=== PATIENT | female | born 1995 | race Caucasian/White ===

== ENCOUNTER 2018-08-27 20:07 | Emergency (ER) | payer SELFPAY ==
[2018-08-27 20:10] VITALS: BP 126/83; PULSE 97; RESP 17; TEMP 37.4; O2SAT 97
--- NOTE | 2018-08-27 20:24 | W.ED.GENAD ---
Discharge Plan Disposition Patient Disposition: HOME Condition: Improving Discharge Details Chief Complaint: RashLesion Clinical Impression: Urticaria Primary Care Provider: None,None ED Provider: Lokesh Herman Home Meds and New Rx's Prescriptions: New prednisone 20 mg tablet 40 mg PO DAILY 5 Days Qty: 10 RF: 0 ranitidine HCl 150 mg tablet 150 mg PO BID Qty: 30 RF: 0 Continue ibuprofen 600 MG tablet 600 mg PO Q6H PRN (Reason: Pain) Qty: 16 RF: 0 Discharge Instructions Instructions: Urticaria (ED) Additional Instructions: Return for worsening rash, development of difficulty breathing or sensation of throat swelling. Our care management team will work to get you a follow-up appointment to establish primary care. May use Benadryl 25-50 mg every 6 hours as needed for itching. Please take Zantac and prednisone as prescribed, next dose tomorrow Medical Decision Making 23-year-old female with diffuse dermatitis/urticarial rash over 2 weeks time without clear inciting agent. She does have a pre-standing history of eczema. Do feel she will benefit from systemic steroid burst as well as Zantac for 10 days time. She is without a primary care physician at this time we will ask care management to place her on a follow-up list to establish primary care. Discussed with her home management as well as return precautions . HPI General Mode of arrival: ambulatory. Date/Time Provider Initiated Documentation: 08/27/18 20:11. Limitations to Documentation: no limitations. Information obtained by: patient. History of Present Illness 23 year old F presents to the emergency department with the chief complaint of Rash, described as moderate, Quality is described as other (Itching), and is localized to the chest, back, abdomen, left, right and upper extremity. Patient started experiencing this day(s) and it has been constant. No relieving factors improve symptom(s), No exacerbating factors reported . HPI Narrative: 23-year-old female presents with diffuse urticarial rash over 2 weeks time. She is unclear of any inciting agents. She has not had any throat swelling or difficulty breathing. Related Data Home Medications Medication Instructions Recorded Confirmed ibuprofen 600 mg PO Q6H PRN #16 tablet 11/29/17 08/27/18 prednisone 40 mg PO DAILY 5 Days #10 tab 08/27/18 ranitidine HCl 150 mg PO BID #30 tab 08/27/18 Previous Rx's Medication Instructions Recorded ibuprofen 600 mg PO Q6H PRN #16 tablet 11/29/17 prednisone 40 mg PO DAILY 5 Days #10 tab 08/27/18 ranitidine HCl 150 mg PO BID #30 tab 08/27/18 Allergies Allergy/AdvReac Type Severity Reaction Status Date / Time mushroom AdvReac Unverified 08/27/18 20:16 General Stated Complaint: RashLesion PAULO: 4 Review of Systems Review of Systems 6 systems reviewed and otherwise negative PFS Social History Smoking/Tobacco Use Status: Current every day Exam Narrative Exam Narrative: GEN: awake, alert, oriented 3. Pleasant, well groomed, interactive. HEAD: Normocephalic, atraumatic ENT: Mucous membranes moist, oropharynx unremarkable, External ear exam unremarkable EYES: PERRL, EOMI NECK: Full ROM, no RANDALL, no menigismus CHEST/RESP: Nontender, clear to auscultation bilateral, no wheeze/rhonchi/rales CARDIOVASCULAR: RRR, no murmur, rub raulito. 2+ Rad pulse bilateral EXT: Full ROM, no parveen. SKIN: Warm, dry, well perfused. Diffuse erythematous, blanching raised lesions present on back, abdomen, extremities, no vesicles. Neuro: Grossly normal neurologic exam, conversant, interactive. Psych: Speech fluent, thoughts congruent, affect normal Course Vital Signs Temperature 37.4 C 08/27/18 20:10 Pulse 97 H 08/27/18 20:10 Respiratory Rate 17 08/27/18 20:10 Blood Pressure 126/83 08/27/18 20:10 Pulse Oximetry 97 08/27/18 20:10 Temperature 37.4 C 08/27/18 20:10 Temperature Source Temporal Artery Scan 08/27/18 20:10 Pulse 97 H 08/27/18 20:10 Respiratory Rate 17 08/27/18 20:10 Respiratory Effort Short of Breath 08/27/18 20:15 Blood Pressure 126/83 08/27/18 20:10 Blood Pressure Position Sitting 08/27/18 20:10 Pulse Oximetry 97 08/27/18 20:10 Oxygen Delivery Method Room Air 08/27/18 20:10 Oxygen Flow Rate 0 08/27/18 20:10 Pain Level 3 08/27/18 20:10
--- NOTE | 2018-08-27 20:29 | ED.GENADUL_ITS ---
Discharge Plan Disposition Patient Disposition: HOME Condition: Improving Discharge Details Chief Complaint: RashLesion Clinical Impression: Urticaria Primary Care Provider: None,None ED Provider: Lokesh Herman Home Meds and New Rx's Prescriptions: New prednisone 20 mg tablet 40 mg PO DAILY 5 Days Qty: 10 RF: 0 ranitidine HCl 150 mg tablet 150 mg PO BID Qty: 30 RF: 0 Continue ibuprofen 600 MG tablet 600 mg PO Q6H PRN (Reason: Pain) Qty: 16 RF: 0 Discharge Instructions Instructions: Urticaria (ED) Additional Instructions: Return for worsening rash, development of difficulty breathing or sensation of throat swelling. Our care management team will work to get you a follow-up appointment to establish primary care. May use Benadryl 25-50 mg every 6 hours as needed for itching. Please take Zantac and prednisone as prescribed, next dose tomorrow Medical Decision Making 23-year-old female with diffuse dermatitis/urticarial rash over 2 weeks time without clear inciting agent. She does have a pre-standing history of eczema. Do feel she will benefit from systemic steroid burst as well as Zantac for 10 days time. She is without a primary care physician at this time we will ask care management to place her on a follow-up list to establish primary care. Discussed with her home management as well as return precautions . HPI General Mode of arrival: ambulatory . Date/Time Provider Initiated Documentation: 08/27/18 20:11 . Limitations to Documentation: no limitations . Information obtained by: patient . History of Present Illness 23 year old F presents to the emergency department with the chief complaint of Rash, described as moderate, Quality is described as other (Itching), and is localized to the chest, back, abdomen, left, right and upper extremity. Patient started experiencing this day(s) and it has been constant. No relieving factors improve symptom(s), No exacerbating factors reported . HPI Narrative: 23-year-old female presents with diffuse urticarial rash over 2 weeks time. She is unclear of any inciting agents. She has not had any throat swelling or difficulty breathing. Related Data Home Medications Medication Instructions Recorded Confirmed ibuprofen 600 mg PO Q6H PRN #16 tablet 11/29/17 08/27/18 prednisone 40 mg PO DAILY 5 Days #10 tab 08/27/18 ranitidine HCl 150 mg PO BID #30 tab 08/27/18 Previous Rx's Medication Instructions Recorded ibuprofen 600 mg PO Q6H PRN #16 tablet 11/29/17 prednisone 40 mg PO DAILY 5 Days #10 tab 08/27/18 ranitidine HCl 150 mg PO BID #30 tab 08/27/18 Allergies Allergy/AdvReac Type Severity Reaction Status Date / Time mushroom AdvReac Unverified 08/27/18 20:16 General Stated Complaint: RashLesion PAULO: 4 Review of Systems Review of Systems 6 systems reviewed and otherwise negative PFS Social History Smoking/Tobacco Use Status: Current every day Exam Narrative Exam Narrative: GEN: awake, alert, oriented 3. Pleasant, well groomed, interactive. HEAD: Normocephalic, atraumatic ENT: Mucous membranes moist, oropharynx unremarkable, External ear exam unremarkable EYES: PERRL, EOMI NECK: Full ROM, no RANDALL, no menigismus CHEST/RESP: Nontender, clear to auscultation bilateral, no wheeze/rhonchi/rales CARDIOVASCULAR: RRR, no murmur, rub raulito. 2+ Rad pulse bilateral EXT: Full ROM, no parveen. SKIN: Warm, dry, well perfused. Diffuse erythematous, blanching raised lesions present on back, abdomen, extremities, no vesicles. Neuro: Grossly normal neurologic exam, conversant, interactive. Psych: Speech fluent, thoughts congruent, affect normal Course Vital Signs Temperature 37.4 C 08/27/18 20:10 Pulse 97 H 08/27/18 20:10 Respiratory Rate 17 08/27/18 20:10 Blood Pressure 126/83 08/27/18 20:10 Pulse Oximetry 97 08/27/18 20:10 Temperature 37.4 C 08/27/18 20:10 Temperature Source Temporal Artery Scan 08/27/18 20:10 Pulse 97 H 08/27/18 20:10 Respiratory Rate 17 08/27/18 20:10 Respiratory Effort Short of Breath 08/27/18 20:15 Blood Pressure 126/83 08/27/18 20:10 Blood Pressure Position Sitting 08/27/18 20:10 Pulse Oximetry 97 08/27/18 20:10 Oxygen Delivery Method Room Air 08/27/18 20:10 Oxygen Flow Rate 0 08/27/18 20:10 Pain Level 3 08/27/18 20:10
[2018-08-27] MEDS: predniSONE 20 MG TAB 60 MG PO (20:30)
[2018-08-27 20:31] VITALS: BP 126/83; PULSE 97; RESP 17; TEMP 37.4; O2SAT 97
== END 2018-08-27 20:52 | disposition home or self-care (01) ==
LOC: ER 21:20
PROVIDERS: Emergency Provider Emergency Medicine
DX: L50.9 Urticaria, unspecified (principal); L30.9 Dermatitis, unspecified
CPT/HCPCS: 99283; J7512

== ENCOUNTER 2018-09-17 09:27 | Emergency (ER) | payer SELFPAY ==
[2018-09-17 09:49] VITALS: BP 124/75; PULSE 83; RESP 18; TEMP 36.7; O2SAT 100
--- NOTE | 2018-09-17 09:52 | W.ED.GENAD ---
Discharge Plan Disposition Patient Disposition: HOME Condition: Fair Discharge Details Chief Complaint: DentalOral Clinical Impression: Dental infection Primary Care Provider: None,None ED Provider: Becka Naidu Home Meds and New Rx's Prescriptions: New penicillin V potassium 500 mg tablet 500 mg PO QID Qty: 28 RF: 0 Continued Oral Control RF: 0 Discharge Instructions Instructions: Dental Abscess (ED) Additional Instructions: Encourage hydration. Please continue with Tylenol and/or ibuprofen as needed for discomfort. Please take antibiotics as prescribed. Even if symptoms improve, please take entire course. You will need follow-up with dentist for definitive care or infection will recur. If you develop increased pain, fevers, swelling or other new/worsening symptoms please seek care urgently once again. Discharge Data Discharge Date/Time-TO BE ENTERED AT DEPARTURE: 09/17/18 10:54 Medical Decision Making Patient 23-year-old female with no pertinent medical history, presenting today with chief complaint of left upper dental pain. She reports the pain began approximate 3 days ago. Identifies a #16 tooth on the buccal aspect as the area of discomfort. States that she has had infection in this area previously, was last treated for this over a year ago. Has not as of yet seen a dentist. Does not have a dentist locally. Denies any chills. States that she has felt fevers from the pain spikes. Has been taking ibuprofen which has helped some of her discomfort. Denies any nausea or vomiting. She reports that she takes oral contraceptive, does not have regular menses. On exam, patient appears nontoxic and was resting comfortably. Vital signs are within normal limits. Patient is afebrile. Patient has erythema and some soft tissue swelling near the buccal side of the #16 tooth. No pain along the lingual side. No area of fluctuance to suggest a drainable abscess. No trismus, swelling in the posterior oropharynx. Good range of motion of the TMJ. No swelling of the tongue. Plan to treat with antibiotics. We will first obtain a UPT UPT negative. Patient will be treated for dental infection with Penicillin VK. Advised that she needs follow up with dentist for definitive care. Encouraged hydration and regular dental care. Tylenol and/or Ibuprofen as needed for discomfort. We discussed new/worsening symptoms and when to seek care urgently once again. All of her questions and concerns were addressed, she is in agreement with this plan. HPI General Mode of arrival: ambulatory. Date/Time Provider Initiated Documentation: 09/17/18 09:51. Limitations to Documentation: no limitations. Information obtained by: patient. History of Present Illness 23 year old F presents to the emergency department with the chief complaint of dental pain, described as moderate, Quality is described as aching, and is localized to the mouth. Patient reports no radiation. Patient started experiencing this day(s) and it has been constant. No relieving factors improve symptom(s), Eating worsens symptoms . Patient notes denies chest pain, cough, fever/chills, nausea/vomiting and rash. Patient did receive the following treatments prior to arrival, none Related Data Home Medications Medication Instructions Recorded Confirmed Oral Control 09/17/18 penicillin V potassium 500 mg PO QID #28 tab 09/17/18 Previous Rx's Medication Instructions Recorded penicillin V potassium 500 mg PO QID #28 tab 09/17/18 Allergies Allergy/AdvReac Type Severity Reaction Status Date / Time mushroom AdvReac Unverified 09/17/18 09:53 General PAULO: 4 Review of Systems Constitutional Reports as per HPI, Denies chills, Denies fatigue, Denies fever(s), Denies headache(s) and Denies poor appetite Eyes Denies change in vision and Denies irritation ENT Denies change in voice, Reports dental pain, Denies dysphagia, Denies headache(s), Denies lip swelling and Denies odynophagia Cardiovascular Reports as per HPI and Denies chest pain Respiratory Reports as per HPI and Denies cough Gastrointestinal Reports as per HPI, Denies dysphagia, Denies nausea, Denies odynophagia and Denies vomiting Integumentary/Breasts Reports as per HPI, Denies erythema, Denies rash and Denies skin pain Neurologic Denies headache(s) Endocrine Denies fatigue Allergic/Immunologic Denies lip swelling [facility] Social History Smoking/Tobacco Use Status: Current every day Exam Const General: cooperative, healthy appearing, comfortable, no acute distress, well developed and well groomed Nutritional Appearance: average body habitus and well nourished Orientation: alert and awake HENAL Head: normal to inspection, normocephalic and atraumatic Ears: hearing grossly normal bilaterally, external ears normal and TM's normal bilaterally General nose exam: external nose normal and nares normal Face and sinus: normal facial exam, sinuses nontender and face symmetric Mouth: abnormal oral mucosae (patient has tenderness and erythema over the buccal side #16), lip normal, tongue normal, oropharynx normal, moist mucous membranes, no muffled voice and no trismus Teeth and gingiva: abnormal gingiva (as above) Throat: posterior oropharynx normal, tonsils normal and uvula midline Eyes General: appearance normal, both eyes and all related structures Neck Neck: normal visual inspection, full ROM, no lymphadenopathy, supple and no anterior neck swelling Resp Effort & Inspection: normal respiratory effort, able to speak in complete sentences and no respiratory distress Auscultation: clear to auscultation bilaterally, no rales, no rhonchi and no wheezes Cardio Rate: regular rate Rhythm: regular rhythm Heart Sounds: S1 normal and S2 normal Skin General skin exam: no rashes or lesions noted Trauma: no lacerations or abrasions Neuro General: alert and awake Cognition: normal cognition Speech: speech normal Gait: normal gait Psych Appearance: grossly normal and well kempt Mental Status: mental status grossly normal Speech and Movement: speech and movement normal
--- NOTE | 2018-09-17 10:04 | ED.GENADUL_ITS ---
Discharge Plan Disposition Patient Disposition: HOME Condition: Fair Discharge Details Chief Complaint: DentalOral Clinical Impression: Dental infection Primary Care Provider: None,None ED Provider: Becka Naidu Home Meds and New Rx's Prescriptions: New penicillin V potassium 500 mg tablet 500 mg PO QID Qty: 28 RF: 0 Continued Oral Control RF: 0 Discharge Instructions Instructions: Dental Abscess (ED) Additional Instructions: Encourage hydration. Please continue with Tylenol and/or ibuprofen as needed for discomfort. Please take antibiotics as prescribed. Even if symptoms improve, please take entire course. You will need follow-up with dentist for definitive care or infection will recur. If you develop increased pain, fevers, swelling or other new/worsening symptoms please seek care urgently once again. Discharge Data Discharge Date/Time-TO BE ENTERED AT DEPARTURE: 09/17/18 10:54 Medical Decision Making Patient 23-year-old female with no pertinent medical history, presenting today with chief complaint of left upper dental pain. She reports the pain began approximate 3 days ago. Identifies a #16 tooth on the buccal aspect as the area of discomfort. States that she has had infection in this area previously, was last treated for this over a year ago. Has not as of yet seen a dentist. Does not have a dentist locally. Denies any chills. States that she has felt fevers from the pain spikes. Has been taking ibuprofen which has helped some of her discomfort. Denies any nausea or vomiting. She reports that she takes oral contraceptive, does not have regular menses. On exam, patient appears nontoxic and was resting comfortably. Vital signs are within normal limits. Patient is afebrile. Patient has erythema and some soft tissue swelling near the buccal side of the #16 tooth. No pain along the lingual side. No area of fluctuance to suggest a drainable abscess. No trismus, swelling in the posterior oropharynx. Good range of motion of the TMJ. No swelling of the tongue. Plan to treat with antibiotics. We will first obtain a UPT UPT negative. Patient will be treated for dental infection with Penicillin VK. Advised that she needs follow up with dentist for definitive care. Encouraged hydration and regular dental care. Tylenol and/or Ibuprofen as needed for discomfort. We discussed new/worsening symptoms and when to seek care urgently once again. All of her questions and concerns were addressed, she is in agreement with this plan. HPI General Mode of arrival: ambulatory . Date/Time Provider Initiated Documentation: 09/17/18 09:51 . Limitations to Documentation: no limitations . Information obtained by: patient . History of Present Illness 23 year old F presents to the emergency department with the chief complaint of dental pain, described as moderate, Quality is described as aching, and is localized to the mouth. Patient reports no radiation. Patient started experiencing this day(s) and it has been constant. No relieving factors improve symptom(s), Eating worsens symptoms . Patient notes denies chest pain, cough, fever/chills, nausea/vomiting and rash. Patient did receive the following treatments prior to arrival, none Related Data Home Medications Medication Instructions Recorded Confirmed Oral Control 09/17/18 penicillin V potassium 500 mg PO QID #28 tab 09/17/18 Previous Rx's Medication Instructions Recorded penicillin V potassium 500 mg PO QID #28 tab 09/17/18 Allergies Allergy/AdvReac Type Severity Reaction Status Date / Time mushroom AdvReac Unverified 09/17/18 09:53 General PAULO: 4 Review of Systems Constitutional Reports as per HPI, Denies chills, Denies fatigue, Denies fever(s), Denies headache(s) and Denies poor appetite Eyes Denies change in vision and Denies irritation ENT Denies change in voice, Reports dental pain, Denies dysphagia, Denies headache(s), Denies lip swelling and Denies odynophagia Cardiovascular Reports as per HPI and Denies chest pain Respiratory Reports as per HPI and Denies cough Gastrointestinal Reports as per HPI, Denies dysphagia, Denies nausea, Denies odynophagia and Denies vomiting Integumentary/Breasts Reports as per HPI, Denies erythema, Denies rash and Denies skin pain Neurologic Denies headache(s) Endocrine Denies fatigue Allergic/Immunologic Denies lip swelling [facility] Social History Smoking/Tobacco Use Status: Current every day Exam Const General: cooperative, healthy appearing, comfortable, no acute distress, well developed and well groomed Nutritional Appearance: average body habitus and well nourished Orientation: alert and awake HENMD Head: normal to inspection, normocephalic and atraumatic Ears: hearing grossly normal bilaterally, external ears normal and TM's normal bilaterally General nose exam: external nose normal and nares normal Face and sinus: normal facial exam, sinuses nontender and face symmetric Mouth: abnormal oral mucosae (patient has tenderness and erythema over the buccal side #16), lip normal, tongue normal, oropharynx normal, moist mucous membranes, no muffled voice and no trismus Teeth and gingiva: abnormal gingiva (as above) Throat: posterior oropharynx normal, tonsils normal and uvula midline Eyes General: appearance normal, both eyes and all related structures Neck Neck: normal visual inspection, full ROM, no lymphadenopathy, supple and no anterior neck swelling Resp Effort & Inspection: normal respiratory effort, able to speak in complete sentences and no respiratory distress Auscultation: clear to auscultation bilaterally, no rales, no rhonchi and no wheezes Cardio Rate: regular rate Rhythm: regular rhythm Heart Sounds: S1 normal and S2 normal Skin General skin exam: no rashes or lesions noted Trauma: no lacerations or abrasions Neuro General: alert and awake Cognition: normal cognition Speech: speech normal Gait: normal gait Psych Appearance: grossly normal and well kempt Mental Status: mental status grossly normal Speech and Movement: speech and movement normal
== END 2018-09-17 10:54 | disposition home or self-care (01) ==
PROVIDERS: Emergency Provider Physician Assistant
DX: K04.7 Periapical abscess without sinus (principal)
CPT/HCPCS: 99283

== ENCOUNTER 2020-11-14 03:00 | Outpatient (CLI) | payer MEDICAID, SELFPAY ==
[2020-11-14 15:46] LABS: Abs Immature Grans 0.04 10^3/uL (0.0-0.06); Absolute Basophil Count 0.05 10^3/uL (0.0-0.2); Absolute Eosinophil Count 0.14 10^3/uL (0.0-0.7); Absolute Monocyte Count 0.82 10^3/uL (0.1-0.8); Absolute Neutrophil Count 7.61 10^3/uL (1.2-6.7); Basophils % 0.4; Eosinophils % 1.1; HCT 42.3 % (36.0-46.0); HGB 14.5 g/dL (11.2-15.7); Immature Grans % 0.3; Lymphocytes % 31.1; MCH 30.7 pg (27.0-33.0); MCHC 34.3 % (32.0-36.0); MCV 89.4 fL (80-95); MPV 11.1 fL (8.0-11.0); Monocytes % 6.5; Neutrophils % 60.6; Nucleated RBC 0 %; Platelet Count 385 10^3/uL (130-400); RBC 4.73 10^6/uL (3.93-5.22); RDW 12.5 % (11.7-14.6); RDW-SD 41.4 fL; WBC 12.56 10^3/uL (4.4-10.8)
[2020-11-14 15:50] LABS: Absolute Lymphocyte Count 3.91 10^3/uL (1.2-3.4)
[2020-11-14 16:36] LABS: ALT 19 U/L (14-59); AST 9 U/L (15-37); Albumin 4.1 g/dL (3.4-5.0); Alkaline Phosphatase 84 U/L (46-116); Amylase 44 U/L (25-115); Bilirubin, Direct 0.09 mg/dL (0.00-0.20); Bilirubin, Total 0.4 mg/dL (0.2-1.0); Lipase 68 U/L (73-393); TSH (W/Ref FT4) 0.43 uIU/mL (0.36-3.74); Total Protein 7.6 g/dL (6.4-8.2)
[2020-11-15 10:04] LABS: Varicella IgG Antibody Negative (See Note)
[2020-11-15 10:08] LABS: Rubella IgG Ab (UVM) Positive (See Note)
[2020-11-15 10:21] LABS: HIV-1/2 Ag & Ab Screen Negative (Negative)
[2020-11-15 10:34] LABS: Hepatitis C Ab w Rflx HCV PCR Negative (Negative)
[2020-11-15 11:13] LABS: Hepatitis B Surface Ag Negative (Negative)
[2020-11-15 15:34] LABS: Syphilis Total Ab w/Reflex Nonreactive (Nonreactive)
== END 2020-11-14 03:01 | disposition home or self-care (01) ==
LOC: LBO 03:00
PROVIDERS: Visit Provider Advanced Practice Midwife
DX: Z34.91 Encounter for supervision of normal pregnancy, unspecified, first trimester (principal); Z11.4 Encounter for screening for human immunodeficiency virus [HIV]; Z11.59 Encounter for screening for other viral diseases; Z01.84 Encounter for antibody response examination
CPT/HCPCS: 36415; 80076; 83690; 86787; 86803; 86850; 86900; 86901; 87340; 87389; 82150; 84443; 85025; 86762; 86780

== ENCOUNTER 2020-11-14 15:57 | Outpatient (REF) | payer MEDICAID, SELFPAY ==
--- NOTE | 2020-11-14 14:30 | PAPFT_PTH ---
PATIENT: Beatriz Matute LOC: [facility] U#:[id number] AGE/SX: 25/F ROOM: RE11/14/[address]: Antionette Champion CNM : 1995 BED: DIS: 11/14/2020 SPEC #: [id number] RECD: 11/14/20 18:21 STATUS: JACKLYN REQ #: [id number] ELIUD: 11/14/20 14:[address]: Antionette Champion DEPT: [facility] Cytology RECD BY: Carlotta Foreman ENTERED: 11/14/20 18:21 SP TYPE: PAPFT OTHR DR: None Tissues: 1 - CX/ENDOCX FOR PAP SMEARS Procedures: PAP THIN PREP/UVM Screening Comments: [id number]
[2020-11-14 20:03] LABS: *AMPHETAMINES SCREEN URINE Negative (Negative); *BARBITURATES SCREEN URINE Negative (Negative); *BENZODIAZEPINES SCREEN URINE Negative (Negative); Cannabinoids THC POSITIVE (Negative); Cocaine Screen,Urine Negative (Negative); METHADONE URINE SCREEN Negative (Negative); OPIATES URINE SCREEN Negative (Negative)
[2020-11-14 20:13] LABS: Tricyclic Antidepressants Negative (Negative)
[2020-11-16 16:24] LABS: Chlamydia Result Negative (Negative); GC Result Negative (Negative)
[2020-11-21 09:07] LABS: Buprenorphine Negative ng/mL (Cutoff: 5.0); Norbuprenorphine Negative ng/mL (Cutoff: 2.5)
== END 2020-11-14 15:58 | disposition home or self-care (01) ==
LOC: LBN 15:57
PROVIDERS: Visit Provider Advanced Practice Midwife
DX: Z34.91 Encounter for supervision of normal pregnancy, unspecified, first trimester (principal); Z11.3 Encounter for screening for infections with a predominantly sexual mode of transmission; Z12.4 Encounter for screening for malignant neoplasm of cervix
CPT/HCPCS: 80307; 87077; 87491; 87591; 88142; 87086; 87186; 87480; 87510; 87660

== ENCOUNTER 2020-12-12 14:43 | Outpatient (REF) | payer MEDICAID, SELFPAY | END 2020-12-12 14:44 | disposition home or self-care (01) | LOC: LBN 14:43 | PROVIDERS: Visit Provider Advanced Practice Midwife | DX: Z34.91 Encounter for supervision of normal pregnancy, unspecified, first trimester (principal); R82.998 Other abnormal findings in urine | CPT/HCPCS: 87086 ==

== ENCOUNTER 2020-12-13 03:39 | Outpatient (CLI) | payer MEDICAID, SELFPAY ==
[2020-12-13 14:24] LABS: Kit/Specimen SENT
[2020-12-20 17:51] LABS: Result Summary NEGATIVE; Specimen WB Whole Blood
== END 2020-12-13 03:40 | disposition home or self-care (01) ==
LOC: LBO 03:39
PROVIDERS: Visit Provider Advanced Practice Midwife
DX: Z34.91 Encounter for supervision of normal pregnancy, unspecified, first trimester (principal); Z36.89 Encounter for other specified antenatal screening
CPT/HCPCS: 36415; 81220

== ENCOUNTER 2021-01-17 02:29 | Outpatient (CLI) | payer MEDICAID, SELFPAY ==
--- NOTE | 2021-01-17 08:45 | DI.US_ITS ---
EXAM: US OB 2-3 TRIMESTER CLINICAL HISTORY: ANATOMY, SURVEY,Z34.90. TECHNIQUE: Transabdominal obstetrical ultrasound was performed. COMPARISON: No exams were available for comparison FINDINGS: There is a single viable intrauterine gestation with cardiac activity identified-143 bpm. Amniotic fluid: There is a normal amount of amniotic fluid. Placental location: The placenta is anterior-fundal grade 1,with no evidence of placenta previa.There are multiple venous lakes evident within the placenta. ANATOMY: A 3 vessel umbilical cord is seen. A four-chamber cardiac view was obtained. Right and left ventricular outflow tracts were imaged.Image of the aortic arch was also obtained. There are no obvious abnormalities of the spinal column evident. There is no obvious abnormal ity of the anterior abdominal wall. stomach and urinary bladder are identified and there is no evidence of hydronephrosis. No abnormalities of the upper lip region are identified. Imaging of the brain revealed w hat appears to be a choroid plexus cyst on the right side . This was apparently difficult to assess because of position. Dating parameters place this at approximately 18 weeks and 4 days gestational age. BPD measures 19 weeks HC measures 18 weeks and 4 days AC measures 18 weeks and 1 day FL measures 18 weeks and 4 day Estimated weight is 239 gm-0 pound 8 ounces Fetus is at the 54th percentile on the Hadlock scale. IMPRESSION:: Single viable intrauterine gestation which is approximately 18 weeks and 4 days gestati onal age, implying an IRVIN of June 16, 2021. There are no obvious anomalies evident on today's study. However, there appears to be a probabl e cord plexus cyst in the right-side of the brain and this should undergo reimaging in a few weeks ti nj. The placenta is anterior-fundal and contains venous lakes. No evidence of placenta previa. There is a normal amount of amniotic fluid.
== END 2021-01-17 02:49 ==
PROVIDERS: Visit Provider Advanced Practice Midwife
DX: Z34.92 Encounter for supervision of normal pregnancy, unspecified, second trimester (principal); Z3A.18 18 weeks gestation of pregnancy
CPT/HCPCS: 76805

== ENCOUNTER 2021-03-25 03:08 | Outpatient (CLI) | payer MEDICAID, SELFPAY ==
[2021-03-25 09:17] LABS: HCT 38.1 % (36.0-46.0); HGB 12.9 g/dL (11.2-15.7); MCH 31.8 pg (27.0-33.0); MCHC 33.9 % (32.0-36.0); MCV 93.8 fL (80-95); MPV 10.5 fL (8.0-11.0); Platelet Count 396 10^3/uL (130-400); RBC 4.06 10^6/uL (3.93-5.22); RDW-SD 41.9 fL; WBC 18.09 10^3/uL (4.4-10.8)
[2021-03-25 09:27] LABS: Glucose,1 Hr (Glucola) 125 mg/dL (80-140)
== END 2021-03-25 03:09 | disposition home or self-care (01) ==
LOC: LBO 03:08
PROVIDERS: Visit Provider Advanced Practice Midwife
DX: Z34.93 Encounter for supervision of normal pregnancy, unspecified, third trimester (principal); Z3A.28 28 weeks gestation of pregnancy
CPT/HCPCS: 36415; 82950; 85027

== ENCOUNTER 2021-03-25 17:30 | Outpatient (REF) | payer MEDICAID, SELFPAY ==
[2021-03-25 18:08] LABS: *AMPHETAMINES SCREEN URINE Negative (Negative); *BARBITURATES SCREEN URINE Negative (Negative); *BENZODIAZEPINES SCREEN URINE Negative (Negative); Cannabinoids THC Positive (Negative); Cocaine Screen,Urine Negative (Negative); METHADONE URINE SCREEN Negative (Negative); OPIATES URINE SCREEN Negative (Negative)
[2021-03-25 18:16] LABS: Tricyclic Antidepressants Negative (Negative)
[2021-03-31 13:46] LABS: Buprenorphine Negative ng/mL (Cutoff: 5.0); Norbuprenorphine Negative ng/mL (Cutoff: 2.5)
== END 2021-03-25 17:31 | disposition home or self-care (01) ==
LOC: LBN 17:30
PROVIDERS: Visit Provider Advanced Practice Midwife
DX: O99.323 Drug use complicating pregnancy, third trimester (principal); Z3A.28 28 weeks gestation of pregnancy
CPT/HCPCS: 80307

== ENCOUNTER 2021-05-17 03:55 | Outpatient (CLI) | payer MEDICAID, SELFPAY ==
--- NOTE | 2021-05-17 07:30 | DI.US_ITS ---
Exam(s) US OB JOSH WEIGHT EXAM: US OB JOSH WEIGHT CLINICAL HISTORY: measuring less than dates,UTERINE SIZE DISCREP,[id number]. TECHNIQUE: Transabdominal obstetrical ultrasound performed. COMPARISON: US US OB 2-3 TRIMESTER from 01/17/2021 FINDINGS: Transabdominal obstetrical ultrasound performed. FINDINGS: Number of fetuses: One. position: Cephalic. Placental location: Anterior. No evidence of previa. Placental grade 2. Multiple venous lakes are present. BIOMETRIC DATA: BPD: 84 mm = 33 weeks 6 days HC: 307 mm = 34 weeks 2 days AC: 285 mm = 32 weeks 3 days FL: 68 mm = 35 weeks EFW: 2217 grms 8% Composite Age: 33 weeks 6 days EDC: 06/29/2021 Heart Rate: 124BPM Amniotic fluid index: 14.5 cm. Visually, amount of fluid is within normal limits. Umbilical artery evaluation: PI equals 0.87 which is within normal limits. RI equals 0.58 which is within normal limits. SD ratio is 115/49 which is less than the 50th percentile. IMPRESSION: 1. Single live intrauterine gestation as above. 2. Estimated weight is 2217gms. 3. Amniotic fluid index is 14.5 cm. Visually within normal limits. DATA REPOSITORY:
== END 2021-05-17 04:15 ==
PROVIDERS: Visit Provider Advanced Practice Midwife
DX: O26.843 Uterine size-date discrepancy, third trimester (principal); Z3A.33 33 weeks gestation of pregnancy
CPT/HCPCS: 76816

== ENCOUNTER 2021-05-17 11:14 | Outpatient (CLI) | payer MEDICAID, SELFPAY ==
[2021-05-17 11:29] VITALS: TEMP 37.1
[2021-05-17 12:07] VITALS: BP 137/92; PULSE 80
[2021-05-17 12:08] VITALS: BP 124/72; PULSE 77; TEMP 37.1
[2021-05-17 12:18] VITALS: BP 124/72; PULSE 77
--- NOTE | 2021-05-17 12:30 | W.OBNST ---
Date of service: 05/17/21 Time of Service: 11:45 NST Evaluation Reason for NST Reasons for Nonstress Test: OTHER, SEE COMMENT Reason for NST Other: SGA Gestational Age Gestational Age in Weeks and Days: 35 Weeks and 3Days Test and Monitor Explained Test/Monitor Explained: Test Explained, Monitor Explained and Patient Verbalized Understanding Vital Signs Blood Pressure: 124/72 Pulse: 77 Temperature: 98.8 F NST Information Date on Monitor: 05/17/21 Time on Monitor: 11:30 Date off Monitor: 05/17/21 Time off Monitor: 12:10 Total Time on Monitor: 40 NST Interventions: None NST Evaluation Patient States Movement: Present FHR Baseline: 125 Variability: Moderate 6-25 bpm Accelerations: 15x15 Decelerations: None NST Results: Reactive Note NST Note Note: NST being performed due to 8% growth on US today with normal doppler per verbal report by US department. Will do twice weekly NST and weekly JOSH/doppler per consult with Dr. Nunn. NST today is reactive and reassuring. Trigonometry Tutor has reviewed importance of kick count / movement awareness. NST Reviewed and Verified by: Rhea Pedraza
[2021-05-17 12:32] VITALS: BP 124/72; PULSE 77; TEMP 37.1
== END 2021-05-17 12:23 | disposition home or self-care (01) ==
LOC: BCD 11:17 → OBS 11:26
PROVIDERS: Visit Provider Advanced Practice Midwife
DX: O36.5930 Maternal care for other known or suspected poor fetal growth, third trimester, not applicable or unspecified (principal); Z3A.35 35 weeks gestation of pregnancy
CPT/HCPCS: 59025

== ENCOUNTER 2021-05-22 09:27 | Outpatient (CLI) | payer MEDICAID, SELFPAY ==
[2021-05-22 13:33] VITALS: BP 112/75; PULSE 83; TEMP 37.2
[2021-05-22 14:02] VITALS: BP 112/75; PULSE 83
--- NOTE | 2021-05-22 14:28 | W.OBNST ---
Date of service: 05/22/21 Time of Service: 14:28 NST Evaluation Reason for NST Reasons for Nonstress Test: OTHER, SEE COMMENT Reason for NST Other: size less than dates Gestational Age Gestational Age in Weeks and Days: 36 Weeks and 1Days Test and Monitor Explained Test/Monitor Explained: Test Explained, Monitor Explained and Patient Verbalized Understanding Vital Signs Blood Pressure: 112/75 Pulse: 83 Temperature: 99.0 F NST Information Date on Monitor: 05/22/21 Time on Monitor: 13:39 Date off Monitor: 05/22/21 Time off Monitor: 14:09 Total Time on Monitor: 30 NST Interventions: PO Hydration NST Evaluation Patient States Movement: Present FHR Baseline: 135 Variability: Moderate 6-25 bpm Accelerations: 15x15 Decelerations: None NST Results: Reactive Note NST Note Note: Discussed concerns related to growth restriction. Due to kidney malformation, I recommended MFM consultation regarding the baby's growth and indications for delivery. NST Reviewed and Verified by: Rhea Claire
[2021-05-22 14:29] VITALS: BP 112/75; PULSE 83; TEMP 37.2
[2021-05-22 22:20] LABS: *AMPHETAMINES SCREEN URINE Negative (Negative); *BARBITURATES SCREEN URINE Negative (Negative); *BENZODIAZEPINES SCREEN URINE Negative (Negative); Cannabinoids THC Positive (Negative); Cocaine Screen,Urine Negative (Negative); METHADONE URINE SCREEN Negative (Negative); OPIATES URINE SCREEN Negative (Negative)
[2021-05-22 22:22] LABS: Tricyclic Antidepressants Negative (Negative)
== END 2021-05-22 14:22 | disposition home or self-care (01) ==
LOC: BCD 09:29 → OBS 13:15
PROVIDERS: Visit Provider Advanced Practice Midwife
DX: O26.843 Uterine size-date discrepancy, third trimester (principal); Z3A.36 36 weeks gestation of pregnancy
CPT/HCPCS: 59025; 80307; 87081

== ENCOUNTER 2021-05-24 03:51 | Outpatient (CLI) | payer MEDICAID, SELFPAY ==
--- NOTE | 2021-05-24 09:00 | DI.US_ITS ---
Exam(s) US OB JOSH UMBILICAL ARTERY EXAM: US OB JOSH UMBILICAL ARTERY CLINICAL HISTORY: GROWTH RESTRICTION,[id number]. TECHNIQUE: Transabdominal obstetrical ultrasound performed. COMPARISON: US US OB JOSH WEIGHT from 05/17/2021 FINDINGS: Transabdominal obstetrical ultrasound performed. FINDINGS: Number of fetuses: One. position: Cephalic. Placental location: Anterior and fundal. There is a grade 2 placenta. No evidence of previa. BIOMETRIC DATA: BPD: 87 mm = 35 weeks 2 days HC: 321 mm = 36 weeks 2 days AC: 296 mm = 33 weeks 4 days FL: 64 mm = 32 weeks 6 days EFW: 2286 grms 5% Composite Age: 34 weeks 4 days EDC: 07/01/2021 Heart Rate: 143BPM Amniotic fluid index: 17 cm. Visually, amount of fluid is within normal limits. Umbilical artery evaluation: PI equals 1.07 which is within normal limits RI equals 0.63 which is within normal limits. S/D is equal to 2.72 which is within normal limits IMPRESSION: 1. Single live intrauterine gestation as above. 2. Estimated weight is 2286gms. This is the 5th percentile. 3. Amniotic fluid index is 17 cm. Visually within normal limits. 4. Umbilical artery values are within normal limits. DATA REPOSITORY:
== END 2021-05-24 04:11 ==
PROVIDERS: Visit Provider Advanced Practice Midwife
DX: O36.5930 Maternal care for other known or suspected poor fetal growth, third trimester, not applicable or unspecified (principal); Z3A.34 34 weeks gestation of pregnancy
CPT/HCPCS: 76816; 76820

== ENCOUNTER 2021-05-24 07:09 | Outpatient (CLI) | payer MEDICAID, SELFPAY ==
[2021-05-24 13:28] VITALS: BP 125/78; PULSE 85; TEMP 36.5
[2021-05-24 13:49] VITALS: BP 125/78; PULSE 85
--- NOTE | 2021-05-24 14:13 | PDOC.NST_ITS ---
Date of service: 05/24/21 Time of Service: 14:13 NST Evaluation Reason for NST Reasons for Nonstress Test: OTHER, SEE COMMENT Reason for NST Other: SGA Gestational Age Gestational Age in Weeks and Days: 36 Weeks and 3Days Test and Monitor Explained Test/Monitor Explained: Test Explained, Monitor Explained and Patient Verbalized Understanding Vital Signs Blood Pressure: 125/78 Pulse: 85 Temperature: 97.7 F NST Information Date on Monitor: 05/24/21 Time on Monitor: 13:29 Date off Monitor: 05/24/21 Time off Monitor: 13:58 Total Time on Monitor: 29 NST Interventions: PO Hydration NST Evaluation Patient States Movement: Present FHR Baseline: 135 Variability: Moderate 6-25 bpm Accelerations: 15x15 Decelerations: None NST Results: Reactive Note NST Note Note: US today with doppler studies. US and consultation has been scheduled at [facility] for Thu. NST Reviewed and Verified by: Rhea Claire
[2021-05-24 14:14] VITALS: BP 125/78; PULSE 85; TEMP 36.5
== END 2021-05-24 13:58 | disposition home or self-care (01) ==
LOC: BCD 07:13 → OBS 13:16
PROVIDERS: Visit Provider Advanced Practice Midwife
DX: O26.843 Uterine size-date discrepancy, third trimester (principal); Z3A.36 36 weeks gestation of pregnancy
CPT/HCPCS: 59025

== ENCOUNTER 2021-05-28 07:07 | Outpatient (CLI) | payer MEDICAID, SELFPAY ==
[2021-05-28 13:43] VITALS: BP 128/75; PULSE 80; TEMP 36.9
[2021-05-28 13:45] VITALS: BP 128/75; PULSE 80
--- NOTE | 2021-05-28 17:15 | PDOC.NST_ITS ---
Date of service: 05/28/21 Time of Service: 17:16 NST Evaluation Reason for NST Reasons for Nonstress Test: OTHER, SEE COMMENT Reason for NST Other: SGA Gestational Age Gestational Age in Weeks and Days: 37 Weeks and 0Days Test and Monitor Explained Test/Monitor Explained: Test Explained, Monitor Explained and Patient Verbalized Understanding Vital Signs Blood Pressure: 128/75 Pulse: 80 Temperature: 98.4 F NST Information Date on Monitor: 05/28/21 Time on Monitor: 13:43 Date off Monitor: 05/28/21 Time off Monitor: 14:13 Total Time on Monitor: 30 NST Interventions: PO Hydration NST Evaluation Patient States Movement: Present FHR Baseline: 130 Variability: Moderate 6-25 bpm Accelerations: 15x15 Decelerations: None NST Results: Reactive Note NST Note Note: US at 05/24 showed baby in the 5 %ile and she is having testing 2 x weekly. Beatriz had US [place] [facility] [place]. Cordero which showed the baby in the 13%ile with normal JOSH and AC 3%ile. Dr Cordero recommends induction of labor at 38-39 weeks and that has been scheduled for 05/04 NST Reviewed and Verified by: Rhea Claire
[2021-05-28 17:18] VITALS: BP 128/75; PULSE 80; TEMP 36.9
== END 2021-05-28 14:15 | disposition home or self-care (01) ==
LOC: BCD 07:09 → OBS 13:37
PROVIDERS: Visit Provider Advanced Practice Midwife
DX: O26.843 Uterine size-date discrepancy, third trimester (principal); Z3A.37 37 weeks gestation of pregnancy
CPT/HCPCS: 59025

== ENCOUNTER 2021-05-31 03:37 | Outpatient (CLI) | payer MEDICAID, SELFPAY ==
--- NOTE | 2021-05-31 08:00 | DI.US_ITS ---
Exam(s) US OB JOSH UMBILICAL ARTERY EXAM: US OB JOSH UMBILICAL ARTERY CLINICAL HISTORY: AFFECTED BY GROWTH RESTRICTION, [id number] TECHNIQUE: Ultrasound performed using standard protocol. COMPARISON: US US OB JOSH UMBILICAL ARTERY from 05/24/2021 FINDINGS: Ob ultrasound was performed utilizing 3rd trimester protocol. Placenta is fundal and anterior with no placenta previa. There is visually a normal quantity of amni otic fluid and the JOSH is 14. These is in cephalic presentation and heart rate is 144 BPM. biometry is consistent with gestational age of 35 weeks 1 day and EDC of July 04. The estimated weight is 2493 grams which is at the 6th percentile for predicted gestational age . Umbilical artery Doppler evaluation showed normal systolic-diastolic ratio, resistive index, and puls atility index for the patient's gestational age. IMPRESSION: DATA REPOSITORY:
== END 2021-05-31 03:57 ==
PROVIDERS: Visit Provider Advanced Practice Midwife
DX: Z3A.35 35 weeks gestation of pregnancy; O36.5930 Maternal care for other known or suspected poor fetal growth, third trimester, not applicable or unspecified
CPT/HCPCS: 76816; 76820

== ENCOUNTER 2021-05-31 13:16 | Outpatient (CLI) | payer MEDICAID, SELFPAY ==
[2021-05-31 13:21] VITALS: BP 113/69; PULSE 81; TEMP 36.9
--- NOTE | 2021-05-31 15:50 | W.OBNST ---
Date of service: 05/31/21 Time of Service: 15:50 NST Evaluation Reason for NST Reasons for Nonstress Test: OTHER, SEE COMMENT Reason for NST Other: SGA Gestational Age Gestational Age in Weeks and Days: 37 Weeks and 3Days Test and Monitor Explained Test/Monitor Explained: Test Explained, Monitor Explained and Patient Verbalized Understanding Vital Signs Blood Pressure: 113/69 Pulse: 81 Temperature: 98.4 F NST Information Date on Monitor: 05/31/21 Time on Monitor: 13:05 Date off Monitor: 05/31/21 Time off Monitor: 13:36 Total Time on Monitor: 31 NST Interventions: PO Hydration NST Evaluation Patient States Movement: Present FHR Baseline: 130 Variability: Moderate 6-25 bpm Accelerations: 15x15 Decelerations: None NST Results: Reactive Note JOSH Results of JOSH: 14 , Presentation Presentation Results: cephalic and Other (Growth today in the 6th percentile) NST Note Note: Scheduled for IOL for IUGR on 06/04 NST Reviewed and Verified by: Sabrina Champion
[2021-05-31 15:51] VITALS: BP 113/69; PULSE 81; TEMP 36.9
== END 2021-05-31 13:38 | disposition home or self-care (01) ==
LOC: BCD 13:17 → OBS 13:20
PROVIDERS: Visit Provider Advanced Practice Midwife
DX: O26.843 Uterine size-date discrepancy, third trimester (principal); Z3A.37 37 weeks gestation of pregnancy
CPT/HCPCS: 59025

== ENCOUNTER 2021-06-04 07:43 | Inpatient (IN) | payer MEDICAID, SELFPAY ==
[2021-06-04] VITALS (10 sets, daily range): BP systolic 117–134; BP diastolic 58–86; PULSE 70–90; RESP 14–18; TEMP 36.7–37.3; O2SAT 100
[2021-06-04 08:57] LABS: Source Nasal/Nares
[2021-06-04 09:02] LABS: HCT 36.4 % (36.0-46.0); HGB 12.1 g/dL (11.2-15.7); MCH 31.3 pg (27.0-33.0); MCHC 33.2 % (32.0-36.0); MCV 94.1 fL (80-95); MPV 10.5 fL (8.0-11.0); Platelet Count 438 10^3/uL (130-400); RBC 3.87 10^6/uL (3.93-5.22); RDW 12.6 % (11.7-14.6); RDW-SD 43.3 fL; WBC 19.16 10^3/uL (4.4-10.8)
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
[2021-06-04] MEDS: miSOPROStol 25 MCG TAB 50 MCG PO ×3 (09:29→18:49)
[2021-06-04 09:55] LABS: COVID-19 PCR Negative (Negative)
--- NOTE | 2021-06-04 17:37 | NUR.NOTE ---
cnm would like to wait for next dose of cytotec. Will wait 1 hour and put pt back on monitor per cnm verbal orderNursing Note:
[2021-06-04] MEDS: miSOPROStol 25 MCG TAB VG (18:50)
--- NOTE | 2021-06-04 18:55 | W.PM.OBNL1 ---
Date of service: 06/04/21 Time of Service: 18:55 Informed Consent Informed Consent: Induction of Labor and Risk,Benefits,Alternatives Discussed Pelvic Exam Dilation: 1 Effacement (%): 50 station: -4 Cervix Position: posterior Consistency: medium Vaginal Exam Presentation: Cephalic Contractions Monitor Mode: External Contraction Frequency(min): irreg q 3-5 Contraction Duration(sec): 30-40 Intensity: Mild Fetus A Monitor: External (US) Heart Rate Baseline: 125 Variability: Moderate (6-25 BPM) Categories: Category I Accelerations: 15 X 15 Decelerations: None Amniotic Membrane Status: Intact Assessment and Plan Assessment and plan (1) Encounter for induction of labor: Status: Acute Assessment and plan: A: primipara, IOL via cervical ripening category 1 tracing, 30-40 second contractions oral miso 50 mcg given x2 cvx 1/50% posterior, vtx -4, intact membranes P: Miso 25 mcg placed vaginally @ 1850 Reassess for further prostaglandin dosing in 4 hrs Pt declines medication for sleep this evening Objective Abnormal lab results 06/04/21 Range/Units 08:45 WBC 19.16 H (4.4-10.8) 10^3/uL RBC 3.87 L (3.93-5.22) 10^6/uL Plt Count 438 H (130-400) 10^3/uL Temp Pulse Resp BP Pulse Ox 98.2 F 84 16 134/86 100 06/04/21 18:31 06/04/21 18:32 06/04/21 18:31 06/04/21 18:32 06/04/21 17:18 Laboratory Results WBC 19.16 10^3/uL (4.4-10.8) H 06/04/21 08:45 RBC 3.87 10^6/uL (3.93-5.22) L 06/04/21 08:45 Hgb 12.1 g/dL (11.2-15.7) 06/04/21 08:45 Hct 36.4 % (36.0-46.0) 06/04/21 08:45 MCV 94.1 fL (80-95) 06/04/21 08:45 MCH 31.3 pg (27.0-33.0) 06/04/21 08:45 MCHC 33.2 % (32.0-36.0) 06/04/21 08:45 RDW 12.6 % (11.7-14.6) 06/04/21 08:45 Plt Count 438 10^3/uL (130-400) H 06/04/21 08:45 MPV 10.5 fL (8.0-11.0) 06/04/21 08:45 COVID-19 Source Nasal/Nares 06/04/21 08:30 SARS-CoV-2 (PCR) Negative (Negative) 06/04/21 08:30 Patient ABO/Rh O Positive 06/04/21 08:45 Antibody Screen NEGATIVE 06/04/21 08:45 Vital Signs Reviewed: Yes Subjective Interval history since last seen: irregular and short contractions, abd gets tight and there is pressure in the low back but not painful, maybe 2/10 pain level FOB and pt's mother (vaccinated) present for support Results Abnormal Lab Findings: Procedure Procedures: Cervical Ripening Cervical Ripening: Misoprostol
--- NOTE | 2021-06-04 19:37 | NUR.NOTE ---
500 cc bolus started at 1934 per cnm verbal order due to tachysystoleNursing Note:
[2021-06-04] MEDS: hydrOXYzine PAMOATE 25 MG CAP 75 MG PO (21:53)
[2021-06-05] VITALS (44 sets, daily range): BP systolic 107–127; BP diastolic 56–76; PULSE 62–214; RESP 16; TEMP 36.3–37.1; O2SAT 82–100; BMI 27.6
--- NOTE | 2021-06-05 00:42 | W.PM.OBNL1 ---
Date of service: 06/05/21 Time of Service: 00:42 Pelvic Exam Dilation: 1 Effacement (%): 50 station: -3 Cervix Position: posterior Consistency: medium Vaginal Exam Presentation: Cephalic Pooling: Positive Contractions Monitor Mode: External Contraction Frequency(min): q3 min Contraction Duration(sec): 60-80 Intensity: Mild/Moderate Fetus A Monitor: External (US) Heart Rate Baseline: 125 Variability: Moderate (6-25 BPM) Categories: Category I Accelerations: Present Decelerations: None Amniotic Membrane Status: Ruptured Rupture Method: Spontaneous Amniotic Fluid: Clear Amount: moderate Date of Membrane Rupture: 06/05/21 Time of Membrane Rupture: 00:24 Assessment and Plan Assessment and plan (1) Encounter for induction of labor: Status: Acute Assessment and plan: A: primip, IOL in progress uterine activity q 2-4 minutes, 4th miso dose held SROM clear @ 0024; latent phase labor category 1 tracing; cvx unchanged from previous exam P: Begin GBS prophylaxis with PCN Encourage pt to rest through the night Comfort measures as requested Monitor for progressive labor Objective Vital Signs Reviewed: Yes Subjective Interval history since last seen: While turning over in bed water started to come out
[2021-06-05] MEDS: Penicillin G POT. 5,000,000 UNITS in Normal Saline 100 ML 200 UNITS IVPB (01:02)
[2021-06-05] MEDS: Penicillin G POT. 3,000,000 UNITS in Normal Saline 50 ML 100 UNITS IVPB ×4 (05:07→17:16)
--- NOTE | 2021-06-05 08:37 | NUR.NOTE ---
Nursing Note: Laura Pedraza CNM was at bedside. Plan is to place patient on wireless monitoring and then check cervix to determine plan for the day.
--- NOTE | 2021-06-05 08:59 | W.PM.OBNL1 ---
Date of service: 06/05/21 Time of Service: 08:59 Informed Consent Informed Consent: Induction of Labor and Risk,Benefits,Alternatives Discussed Pelvic Exam Dilation: 1.5 Effacement (%): 70 station: -2 Cervix Position: posterior Consistency: soft Vaginal Exam Presentation: Cephalic Comments: continues to have leaking amniotic fluid, clear with light pink color to it. Contractions Monitor Mode: Palpation Contraction Frequency(min): 3-6 Contraction Duration(sec): 40-50 Intensity: Mild/Moderate Fetus A Monitor: External (US) Heart Rate Baseline: 115 Variability: Moderate (6-25 BPM) Categories: Category I Accelerations: 10 X 10 Decelerations: None Amniotic Membrane Status: Ruptured (06/05/21 at 0024.) Assessment and Plan Assessment and plan (1) Encounter for induction of labor: Status: Acute Assessment and plan: Cheryl discussed that she is in early labor, we would expect regular contractions every 3 minutes lasting approximately 1 minute to cause cervical changes. As her membranes are ruptured, we would want to continue to use medications to cause contractions and progression vs expectant management. She agrees that if no active contractions by 1200 today we would move forward with pitocin augmentation. We briefly discussed epidural for labor pain management, she is not interested at this time. Dr. Macias is aware of VE and patient status and agrees to plan of care as established at this time. MAHAMED (2) affected by growth restriction: Status: Acute Assessment and plan: tracing has been CAT I, will continue to observe.MAHAMED (3) Placental abnormality: Status: Acute Assessment and plan: tracing remains reassuring. will continue present management, will plan to send placenta to pathology after delivery. Objective Abnormal lab results 06/04/21 Range/Units 08:45 WBC 19.16 H (4.4-10.8) 10^3/uL RBC 3.87 L (3.93-5.22) 10^6/uL Plt Count 438 H (130-400) 10^3/uL Temp Pulse Resp BP Pulse Ox 97.7 F 75 16 112/66 98 06/05/21 08:05 06/05/21 08:05 06/05/21 08:05 06/05/21 08:05 06/05/21 02:17 Laboratory Results WBC 19.16 10^3/uL (4.4-10.8) H 06/04/21 08:45 RBC 3.87 10^6/uL (3.93-5.22) L 06/04/21 08:45 Hgb 12.1 g/dL (11.2-15.7) 06/04/21 08:45 Hct 36.4 % (36.0-46.0) 06/04/21 08:45 MCV 94.1 fL (80-95) 06/04/21 08:45 MCH 31.3 pg (27.0-33.0) 06/04/21 08:45 MCHC 33.2 % (32.0-36.0) 06/04/21 08:45 RDW 12.6 % (11.7-14.6) 06/04/21 08:45 Plt Count 438 10^3/uL (130-400) H 06/04/21 08:45 MPV 10.5 fL (8.0-11.0) 06/04/21 08:45 COVID-19 Source Nasal/Nares 06/04/21 08:30 SARS-CoV-2 (PCR) Negative (Negative) 06/04/21 08:30 Patient ABO/Rh O Positive 06/04/21 08:45 Antibody Screen NEGATIVE 06/04/21 08:45 Vital Signs Reviewed: Yes Subjective Interval history since last seen: Using Nitrous and doing fairly well with contractions. Is not currently planning epidural for pain management. KH Results Hemoglobin/Hematocrit: Hgb 12.1 g/dL (11.2-15.7) 06/04/21 08:45 Hct 36.4 % (36.0-46.0) 06/04/21 08:45 Abnormal Lab Findings: Abnormal Labs 06/04/21 08:45 WBC 19.16 H RBC 3.87 L Plt Count 438 H
[2021-06-05] MEDS: Normal Saline Flush 10 ML SYR IVP (09:08)
--- NOTE | 2021-06-05 09:40 | W.PM.OBNL1 ---
Date of service: 06/05/21 Time of Service: 09:40 Informed Consent Informed Consent: Induction of Labor and Risk,Benefits,Alternatives Discussed Contractions Monitor Mode: Palpation Contraction Frequency(min): 10 Contraction Duration(sec): 40 Intensity: Mild/Moderate Fetus A Monitor: External (US) Heart Rate Baseline: 115 Variability: Moderate (6-25 BPM) Categories: Category I Accelerations: 15 X 15 Assessment and Plan Assessment and plan (1) Encounter for induction of labor: Status: Acute Assessment and plan: Will begin pitocin augmentation as contractions are ineffective in timing and or intensity. Reviewed plan of care with MD who agrees. Patient agrees to this plan as well. KH Objective Temp Pulse Resp BP Pulse Ox 97.7 F 75 16 112/66 98 06/05/21 09:12 06/05/21 08:05 06/05/21 08:05 06/05/21 08:05 06/05/21 02:17 Laboratory Results WBC 19.16 10^3/uL (4.4-10.8) H 06/04/21 08:45 RBC 3.87 10^6/uL (3.93-5.22) L 06/04/21 08:45 Hgb 12.1 g/dL (11.2-15.7) 06/04/21 08:45 Hct 36.4 % (36.0-46.0) 06/04/21 08:45 MCV 94.1 fL (80-95) 06/04/21 08:45 MCH 31.3 pg (27.0-33.0) 06/04/21 08:45 MCHC 33.2 % (32.0-36.0) 06/04/21 08:45 RDW 12.6 % (11.7-14.6) 06/04/21 08:45 Plt Count 438 10^3/uL (130-400) H 06/04/21 08:45 MPV 10.5 fL (8.0-11.0) 06/04/21 08:45 COVID-19 Source Nasal/Nares 06/04/21 08:30 SARS-CoV-2 (PCR) Negative (Negative) 06/04/21 08:30 Patient ABO/Rh O Positive 06/04/21 08:45 Antibody Screen NEGATIVE 06/04/21 08:45 Subjective Interval history since last seen: Patient is very tired but agrees to moving forward with Pitocin as contractions have spaced to 1 in 10 minutes. KH Interventions Induction Indication: Intrauterine Growth Restriction/ Growth Restriction , Type of Induction: Pitocin , Results Hemoglobin/Hematocrit: Hgb 12.1 g/dL (11.2-15.7) 06/04/21 08:45 Hct 36.4 % (36.0-46.0) 06/04/21 08:45 Abnormal Lab Findings: Abnormal Labs 06/04/21 08:45 WBC 19.16 H RBC 3.87 L Plt Count 438 H
[2021-06-05] MEDS: Oxytocin/Normal Saline 30 UNIT/500 ML BAG 1 UNITS IV (10:35)
--- NOTE | 2021-06-05 14:08 | W.ANESPRE ---
General Info Date of Service Date Performed: 06/05/21 Height: 5 ft 2.99 in Weight: 70.76 kg Body Mass Index (BMI): 27.6 Meds Allergies and Home Medications Allergies Allergy/AdvReac Type Severity Reaction Status Date / Time cocoa Allergy Severe upper body Verified 06/04/21 17:23 hives egg Allergy Severe upper body Verified 06/04/21 17:24 hives mushroom AdvReac Intermediate Verified 06/04/21 17:24 Home Medication Medication Instructions Recorded vitamins no.119-iron 2 tab PO DAILY tab 10/18/20 fumarate 29 mg-folic acid 1 mg tablet triamcinolone acetonide 0.1 % 1 applic TOPICAL BID #80 g 04/10/21 topical cream Current Visit Medications: Current Medications Generic Name Dose Route Start Last Admin Trade Name Freq PRN Reason Stop Dose Admin Butorphanol Tartrate 1 mg 06/05/21 13:25 Butorphanol 2 Mg/1 Ml Vial IVP Q3H PRN PRN Hydroxyzine Pamoate 75 mg 06/04/21 21:40 06/04/21 21:53 Hydroxyzine Pamoate 25 Mg Cap PO 75 mg HS PRN PRN Administration Sleep Sodium Chloride 500 mls @ 0 mls/hr 06/04/21 19:06 Saline 500ml Bag IV PRN PRN As Directed Penicillin G Potassium 3,000, 50 mls @ 100 mls/hr 06/05/21 05:00 06/05/21 13:27 000 units/ Sodium Chloride IVPB 100 mls/hr Q4H CRYSTAL Administration Ringer's Solution 1,000 mls @ 125 mls/hr 06/05/21 09:45 IV INFUSION CRYSTAL Oxytocin/Sodium Chloride 30 unit in 500 mls @ 2 mls/hr 06/05/21 09:45 06/05/21 11:45 Pitocin/Normal Saline IV 2 milliunits/min INFUSION CRYSTAL 2 mls/hr Titration Protocol 2 MILLIUNITS/MIN IV Miscellaneous Supplies 1 each 06/04/21 19:15 Iv Access IV DIRECTED CRYSTAL Sodium Chloride 0 ml 06/04/21 19:06 06/05/21 09:08 Normal Saline Flush 10 Ml Syr IVP 20 ml PRN PRN Administration Terbutaline Sulfate 0.25 mg 06/04/21 07:43 Terbutaline 1 Mg/Ml Vial SC PRN PRN PFSH Active Problems Active Problems: Problem Status Onset Code Encounter for induction of labor Z34.90 38 weeks gestation of Z3A.38 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 following nipple piercing on right side. Repeierced after. Positive test Surgical History Surgical History (Updated 03/25/21 @ 09:58 by Rhea Claire CNM) History of excision of mass right breast abcess following piercing Tobacco Smoking/Tobacco Use Status: Current every day Tobacco Type: cigarettes Smoking cigarettes per day: 4 Years smoked: 10 and e-cigarettes Tobacco: How many years used: 10 Substance Use Substance use: Rarely Substance use type: marijuana Prental History History 3 Para 0 Hx # Term Pregnancies 0 Multiple births 0 Hx # Pregnancies 0 Ectopic pregnancies 0 AB induced 1 Hx Number of Living Children 0 AB spontaneous 1 Vital Signs and Lab Results Vital Signs Most Recent Vital Signs in EMR: Most Recent Vital Signs Temp Pulse Resp BP Pulse Ox 36.6 C 72 16 123/69 98 06/05/21 11:52 06/05/21 11:41 06/05/21 08:05 06/05/21 11:41 06/05/21 02:17 Lab Results Result Diagrams: 06/04/21 08:45 Blood Type / Crossmatch: Patient ABO/Rh O Positive 06/04/21 08:45 06/04/21 Antibody Screen NEGATIVE 06/04/21 08:45 06/04/21 Complete Blood Count: White Blood Count 19.16 10^3/uL (4.4-10.8) H 06/04/21 08:45 06/04/21 Red Blood Count 3.87 10^6/uL (3.93-5.22) L 06/04/21 08:45 06/04/21 Hemoglobin 12.1 g/dL (11.2-15.7) 06/04/21 08:45 06/04/21 Hematocrit 36.4 % (36.0-46.0) 06/04/21 08:45 06/04/21 Platelet Count 438 10^3/uL (130-400) H 06/04/21 08:45 06/04/21 Complete Metabolic Panel: No Data to Display Liver Function Panel: No Data to Display Coagulation Panel: No Data to Display Cardiac Panel: No Data to Display Arterial Blood Gas: No Data to Display Venous Blood Gas: No Data to Display Pancreas Panel: No Data to Display Thyroid Panel: No Data to Display Infectious Disease: Coronavirus (COVID-19)(PCR) Negative (Negative) 06/04/21 08:30 06/04/21 Coronavirus 2019 Source Nasal/Nares 06/04/21 08:30 06/04/21 Blood Cultures: No Data to Display Toxicology Panel: Urine Amphetamines Screen Negative (Negative) 05/22/21 14:00 05/22/21 Urine Benzodiazepines Screen Negative (Negative) 05/22/21 14:00 05/22/21 Urine Barbiturates Screen Negative (Negative) 05/22/21 14:00 05/22/21 Urine Cocaine Screen Negative (Negative) 05/22/21 14:00 05/22/21 Urine Methadone Screen Negative (Negative) 05/22/21 14:00 05/22/21 Urine Opiates Screen Negative (Negative) 05/22/21 14:00 05/22/21 Ur Tricyclic Antidepressants Screen Negative (Negative) 05/22/21 14:00 05/22/21 Ur Tetrahydrocannabinol (THC) Scrn Positive (Negative) A 05/22/21 14:00 05/22/21 Panel: No Data to Display Anesthesia Assessment and Plan Anesthesia History Personal History: No History of Anesthesia Complications Family History: No Family History of Anesthesia Complications Exercise Tolerance Exercise Tolerance: Metabolic Equivalents>4 Pertinent Negatives Pertinent Negatives: No Symptoms of GERD, No Major Cardiovascular Symptoms or Complaints, No Major Pulmonary Symptoms or Complaints (Smoker) and No History of CVA/TIA Cardiac & Pulmonary Exam Cardiac Exam: Normal S1/S2 Heart Sounds Pulmonary Exam: Clear Bilateral Breath Sounds Airway Exam Known Difficult Airway: No Mallampati Class: 1 Mouth Opening: Normal (> 3cm) Thyromental Distance: Greater than 3 cm Neck Range of Motion: Full ROM Neck Circumference: Normal Teeth Condition: Normal Dentition ASA Classification ASA Score: ASA 2 Emergency Case?: No NPO Status NPO Status: Full Stomach Status Status: Confirmed Anesthesia Plan Resuscitation Status: Full Code Anesthesia Technique: Epidural Anesthesia Airway Planned: Natural Airway Monitors Used: Standard Monitors
[2021-06-05] MEDS: Lactated Ringers 1,000 ML 125 ML IV (14:27)
--- NOTE | 2021-06-05 14:43 | PGE_ITS ---
Date of service: 06/05/21 Time of Service: 14:43 Informed Consent Informed Consent: Induction of Labor and Risk,Benefits,Alternatives Discussed Pelvic Exam Dilation: 2 Effacement (%): 80 station: -2 Cervix Position: posterior Consistency: soft Vaginal Exam Presentation: Cephalic Contractions Contraction Frequency(min): 2 in 10 Contraction Duration(sec): 40-50 Intensity: Mild/Moderate Fetus A Monitor: External (US) Heart Rate Baseline: 120 Variability: Moderate (6-25 BPM) Categories: Category I Accelerations: 15 X 15 Decelerations: None Assessment and Plan Assessment and plan (1) Encounter for induction of labor: Status: Acute Assessment and plan: once pateint is comfortable and anesthesia has c ompleted, test and assessment, we will resume pitocin induction and monitor for progress, expect NVD. KH Objective Temp Pulse Resp BP Pulse Ox 97.9 F 74 16 121/66 99 06/05/21 11:52 06/05/21 14:42 06/05/21 08:05 06/05/21 14:42 06/05/21 14:42 Laboratory Results WBC 19.16 10^3/uL (4.4-10.8) H 06/04/21 08:45 RBC 3.87 10^6/uL (3.93-5.22) L 06/04/21 08:45 Hgb 12.1 g/dL (11.2-15.7) 06/04/21 08:45 Hct 36.4 % (36.0-46.0) 06/04/21 08:45 MCV 94.1 fL (80-95) 06/04/21 08:45 MCH 31.3 pg (27.0-33.0) 06/04/21 08:45 MCHC 33.2 % (32.0-36.0) 06/04/21 08:45 RDW 12.6 % (11.7-14.6) 06/04/21 08:45 Plt Count 438 10^3/uL (130-400) H 06/04/21 08:45 MPV 10.5 fL (8.0-11.0) 06/04/21 08:45 COVID-19 Source Nasal/Nares 06/04/21 08:30 SARS-CoV-2 (PCR) Negative (Negative) 06/04/21 08:30 Patient ABO/Rh O Positive 06/04/21 08:45 Antibody Screen NEGATIVE 06/04/21 08:45 Vital Signs Reviewed: Yes Subjective Interval history since last seen: patient was unable to tolerate contractions and requested epidural. Anesthesia was paged and attended. Epidural is in place and patient is now able to recline in bed. she is currently more comfortable but pitocin has been off since before epidural to allow for placement. KH Interventions Pain Management Interventions: Epidural . Results Hemoglobin/Hematocrit: Hgb 12.1 g/dL (11.2-15.7) 06/04/21 08:45 Hct 36.4 % (36.0-46.0) 06/04/21 08:45 Abnormal Lab Findings: Abnormal Labs 06/04/21 08:45 WBC 19.16 H RBC 3.87 L Plt Count 438 H
--- NOTE | 2021-06-05 14:50 | W.ANESNEU ---
Epidural/Spinal Catheter Date Performed: 06/05/21 Procedure Start: 14:25 Procedure Stop: 14:41 Requesting Provider: Rhea Pedraza Procedure Location: Obstetrics Reason Performed: Labor Epidural Standard Monitors Applied: ECG, Blood Pressure and SpO2 Patient Position: Sitting Sedation Given (Indicate Dose Given): No Sedation given Patient Mental Status: Awake Sterility: Hand Hygiene, Surgical Cap, Surgical Mask, Sterile Gloves, Sterile Drape/Sheet and Chlorhexidine Procedure Location: L3-L4 Interspace Epidural Needle: Tuohy 17 Guage Needle Length: 3.5 Inch Needle Approach: Midline Epidural Procedure: Skin Prepped, Sterile Drape Placed, 1% Lidocaine to skin and subcutaneous tissue with 25G needle, Tuohy Needle placed, MAGNO to Saline Used (7 cm), Epidural Catheter Placed (15cm ), Negative Heme, Negative CSF Flow and Other (Negative test dose 2 cc 1.5% lidocaine with epi) Catheter Placed?: Catheter Placed (7) Test Dose (Indicate Dose Given): Negative Test Dose (2cc 1.5% lido with epinephrine) Loss of Resistance Depth (cm): 7 Catheter depth at skin (cm): 15 Dressing: [place]orbaview Dressing Placed and Tegaderm Applied Epidural Provider Bolus (Indicate Dose Given): Total bolus dose given in 3-5 ml divided doses (3cc epidural pump mixture, ONLY 1 3cc dose given as bolus) Additives (Indicate Dose Given ): None Infusion Medication: Medication Infusion Began Medication Infusion: Ropivacaine 0.1% with Fentanyl 2mcg/ml Maintenance Infusion Rate (ml/hour): 10 PCEA Bolus Dose (ml): 3 Block Level: T10 Paresthesia: None Ultrasound: Not Used Number of Attempts (See previous attempts in note section): 1 Procedure Tolerated: No Complications Procedure Outcome: Successful Performed By: Armani Loya
--- NOTE | 2021-06-05 18:52 | W.PM.OBNL1 ---
Date of service: 06/05/21 Time of Service: 18:52 Informed Consent Informed Consent: Induction of Labor and Risk,Benefits,Alternatives Discussed Pelvic Exam Comments: VE deferred at this time due to ROM and adequate pain relief as well as reassuring maternal status. KH Contractions Monitor Mode: Palpation Contraction Frequency(min): 50-60 Intensity: Moderate/Strong Fetus A Monitor: External (US) Heart Rate Baseline: 125 Presentation: Cephalic Variability: Moderate (6-25 BPM) Categories: Category I Accelerations: 15 X 15 Decelerations: None Assessment and Plan Assessment and plan (1) Encounter for induction of labor: Status: Acute Assessment and plan: continue present management. Will reassess VE in 2 hours or prn. KH Objective Temp Pulse Resp BP Pulse Ox 98.6 F 62 16 117/71 99 06/05/21 18:37 06/05/21 18:37 06/05/21 08:05 06/05/21 18:37 06/05/21 15:17 Laboratory Results WBC 19.16 10^3/uL (4.4-10.8) H 06/04/21 08:45 RBC 3.87 10^6/uL (3.93-5.22) L 06/04/21 08:45 Hgb 12.1 g/dL (11.2-15.7) 06/04/21 08:45 Hct 36.4 % (36.0-46.0) 06/04/21 08:45 MCV 94.1 fL (80-95) 06/04/21 08:45 MCH 31.3 pg (27.0-33.0) 06/04/21 08:45 MCHC 33.2 % (32.0-36.0) 06/04/21 08:45 RDW 12.6 % (11.7-14.6) 06/04/21 08:45 Plt Count 438 10^3/uL (130-400) H 06/04/21 08:45 MPV 10.5 fL (8.0-11.0) 06/04/21 08:45 COVID-19 Source Nasal/Nares 06/04/21 08:30 SARS-CoV-2 (PCR) Negative (Negative) 06/04/21 08:30 Patient ABO/Rh O Positive 06/04/21 08:45 Antibody Screen NEGATIVE 06/04/21 08:45 Vital Signs Reviewed: Yes Subjective Patient Reports: No new Complaints Interval history since last seen: remains very comfortable after epidural. Denies rectal pressure but is aware of contractions. KH Results Hemoglobin/Hematocrit: Hgb 12.1 g/dL (11.2-15.7) 06/04/21 08:45 Hct 36.4 % (36.0-46.0) 06/04/21 08:45 Abnormal Lab Findings: Abnormal Labs 06/04/21 08:45 WBC 19.16 H RBC 3.87 L Plt Count 438 H
--- NOTE | 2021-06-05 20:27 | PLAC_PTH ---
PATIENT: Beatriz Matute LOC: OBS U#:[id number] AGE/SX: 26/F ROOM: OBS.306 RE06/04/[address]: Antionette Champion CNM : 1995 BED: A DIS: 06/07/2021 SPEC #: [id number] RECD: 06/06/21 12:53 STATUS: JACKLYN REQ #: [id number] ELIUD: 06/05/21 20:[address]: Antionette Champion DEPT: Surgical Specimen RECD BY: Carlotta Foreman ENTERED: 06/06/21 12:55 SP TYPE: PLAC OTHR DR: None Tissues: 1 - PLACENTA (3RD TRIMESTER) Procedures: GROSS AND MICRO LEVEL 5 Comments: [id number]
--- NOTE | 2021-06-05 20:54 | W.OBDELIVERY ---
Date of service: 06/05/21 Time of Service: 20:54 OB Labor/ Delivery Information Baby A Delivery Delivery Method: Spontaneaous Presentation: Cephalic Vertex Position: Left Occipital Anterior Cord Description-Baby A: 3 Vessels and Clamped/Cut Cord Description Comment: long cord with multiple coils noted. Amniotic Fluid: Clear Estimated Blood Loss: 100 ml Delivery Outcome: Liveborn Transferred: Remains with Mother Note: Live female delivers BHAVESH over intact perineum at 2026. Nuchal cord loose times one noted and baby delivered through it. Baby was placed on maternal abdomen for skin to skin. Lusty cry noted immediately and scores are 7 at one minute and 9 at 5 minutes. Cord ceased pulsing and was double clamped and cut by Mother of Beatriz at 2049 . Placenta then delivered with gentle maternal pushing effort and use of IV pitocin. placenta is noted to be intact, shown to Beatriz and then will be sent to pathology for study due to placental lakes and marginal cord insertion. Fundus firms to U with 100 ml EBL noted. Sponge, needle and instrument count are correct. Mother and baby are in satisfactory condition. Expect normal PP course. Baby girl's name is Ela and weight is pending due to skin to skin. Providers Nurse Oracle Business Analyst: Rhea Pedraza Labor/Delivery Information Number of Babies in Womb: 1 Steroids Given: None Reason Steroids Not Administered: N/A Group Beta Strep: Positive Antibiotics Administered: Yes Rubella Status: Immune Blood Type: O+ Varicella Immunity: Nonimmune Born En Route: No Maternal Complications: None Shoulder Dystocia: No Stages of Labor ROM Baby A: 06/05/21 ROM Baby A: 00:24 Infant Delivery Date-Baby A: 06/05/21 Infant Delivery Time-Baby A: 20:27 Placenta Delivery Date-Baby A: 06/05/21 Placenta Delivery Time-Baby A: 20:50 Labor-Stage 3 Duration: 23 minutes Placenta Cultured: No Placenta Status: Delivered Baby A Gestational Status: Early Term (37-38.6 wks)
[2021-06-06] MEDS: Ibuprofen 600 MG TAB PO ×3 (03:24→18:15)
[2021-06-06] MEDS: Acetaminophen 325 MG TAB 650 MG PO ×3 (03:25→18:15)
[2021-06-06 05:00] VITALS: BP 106/47; PULSE 65; RESP 18; TEMP 36.6
--- NOTE | 2021-06-06 08:04 | W.ANESPOSTOP ---
Postoperative Evaluation Date, Time and Location Date Performed: 06/06/21 Time Performed: 08:04 Patient Location: Obstetrics Vital Signs Most Recent Imported Vital Signs: Most Recent Vital Signs Temp Pulse Resp BP Pulse Ox 36.6 C 65 18 106/47 L 99 06/06/21 05:00 06/06/21 05:00 06/06/21 05:00 06/06/21 05:00 06/05/21 15:17 Pain Score Most Recent Pain Score: Most Recent Pain Score Pain Level [Abdomen] 1 06/06/21 05:00 Pain Level 3 06/06/21 03:24 Assessment Mental Status: Awake (Alert & Oriented to Patient Baseline) Airway and Respiratory Function: Patent airway with normal (patient baseline) respiratory exam Cardiovascular Function: Hemodynamically Stable Hydration Status: Adequately Hydrated Nausea & Vomiting: No Nausea or Vomiting Pain: Pain is tolerable per patient Peripheral Nerve Block: Patient did not receive a nerve block
--- NOTE | 2021-06-06 09:09 | OBPPV_ITS ---
Date of service: 06/06/21 Time of Service: 09:09 Assessment and Plan Assessment and plan (1) care following vaginal delivery: Start date: 06/06/21 Start time: 09:16 Status: Acute Assessment and plan: continue present management probable discharge to home tomorrow. MAHAMED (2) Lactating mother: Start date: 06/06/21 Start time: 09:16 Status: Acute Assessment and plan: will encourage frequent nursing today (3) Maternal varicella, non-immune: Start date: 06/06/21 Start time: 09:17 Status: Acute Assessment and plan: will offer vaccine PP. Subjective Subjective Patient comments: No complaints, Pain well controlled and Tolerating diet baby status: Doing well, Rooming in and Strong Bonding Observed [place] feeding status: Exclusively breast feeding Narrative: Patient indicates that baby nursed well twice since delivery but is sleepy this morning and that she planned to let her rest. Supervisor Mechanic Boilermaking reviewed importance of trying to nurse baby every 2-3 hours today as baby is starting with lower weight. Exam Physical Exam Vital signs: Temp Pulse Resp BP Pulse Ox 98 F 65 18 106/47 L 99 06/06/21 05:00 06/06/21 05:00 06/06/21 05:00 06/06/21 05:00 06/05/21 15:17 Vital Signs Reviewed: Yes Constitutional Constitutional: no acute distress HEENT Exam HEENT Exam: Normal Neck Exam Neck Exam: Not Done Respiratory Exam Respiratory Exam: Normal (mild crackles, has not vaped or smoked in 2 days. ) Cardiovascular Exam Cardiovascular Exam: Normal Fundal Exam Fundus: Below Umbilicus and Firm Rectal Exam Rectal Exam: Not Done Exam Patient deferred: perineal exam Perineum: Normal External: Present normal urethra appearance Extremities Exam Extremity Exam: Normal and Full ROM Back/Spine/Pelvis Exam Back Exam: Normal Skin Exam Skin Exam: Abnormal (ecxema has thickened skin, no open lesions. ) Neurological Exam Neurological Exam: Normal Psychiatric Exam Psychiatric Exam: Normal Results Hemoglobin/Hematocrit: Hgb 12.1 g/dL (11.2-15.7) 06/04/21 08:45 Hct 36.4 % (36.0-46.0) 06/04/21 08:45 Abnormal Lab Findings: Abnormal Labs 06/04/21 08:45 WBC 19.16 H RBC 3.87 L Plt Count 438 H
[2021-06-06 09:15] VITALS: BP 130/78; PULSE 65; RESP 20; TEMP 36.1; O2SAT 100
[2021-06-06 12:00] VITALS: BP 112/65; PULSE 76; RESP 20; TEMP 36.6; O2SAT 100
[2021-06-06 23:16] VITALS: BP 120/81; PULSE 81; RESP 16; TEMP 36.6
[2021-06-07] MEDS: Ibuprofen 600 MG TAB PO (07:37)
[2021-06-07] MEDS: Acetaminophen 325 MG TAB 650 MG PO (07:37)
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
[2021-06-07 07:50] VITALS: BP 110/71; PULSE 70; RESP 16; TEMP 36.8
--- NOTE | 2021-06-18 07:56 | W.OBDELIVERY ---
Date of service: 06/05/21 Time of Service: 01:00 OB Labor/ Delivery Information Baby A Delivery Delivery Method: Spontaneaous Presentation: Cephalic Vertex Position: Left Occipital Anterior Cord Description-Baby A: Clamped/Cut Amniotic Fluid: Clear Delivery Outcome: Liveborn Transferred: Remains with Mother Note: Live female delivers over intact perineum without difficulty. Placenta delivers with gentle maternal pushing effort and pitocin is given IV. Fundus firms to below U and minimal blood loss is noted. there is a separate note for this delivery as well. Mother and baby are in satisfactory condition. They will room in together as Mother tested positive for COVID but remains asymptomatic at this time. Providers Nurse Health Technician: Rhea Pedraza Labor/Delivery Information Number of Babies in Womb: 1 Steroids Given: None Reason Steroids Not Administered: N/A Group Beta Strep: Positive Antibiotics Administered: Yes Rubella Status: Immune Blood Type: O+ Varicella Immunity: Nonimmune Maternal Complications: None Shoulder Dystocia: No Stages of Labor ROM Baby A: 06/05/21 ROM Baby A: 00:24 ROM Total Time- Baby A: [id number] Delivery Date-Baby A: 06/05/21 Delivery Time-Baby A: 20:27 Placenta Delivery Date-Baby A: 06/05/21 Placenta Delivery Time-Baby A: 20:50 Labor-Stage 3 Duration: 23 minutes Placenta Cultured: No Placenta Status: Delivered Delivery Date-Baby B: 06/05/21 Infant Delivery Time- Baby B: 20:27 Placenta Delivery Date-Baby B: 06/05/21 Placenta Delivery Time-Baby B: 20:50 Placenta Status: Delivered Baby A Gender: Female Gestational Status: Early Term (37-38.6 wks) Gestational Age in Weeks/Days: 38 Weeks and 1 Days Score-1 Minute Interval(Baby A) Heart Rate-1 minute: 100 BPM or Greater Respiratory Effort- 1 minute: Spontaneous/Strong Cry Muscle Tone-1 minute: Minimal Flexion/Extension Reflex Response-1 minute: Prompt Response Color-1 minute: Pallor or Cyanosis Total Score-1 minute: 7 Score-5 Minute Interval(Baby A) Heart Rate- 5 minute: 100 BPM or Greater Respiratory Effort-5 minute: Spontaneous/Strong Cry Muscle Tone-5 minute: Active Movement Reflex Response-5 minute: Prompt Response Color-5 minute: Bluish Hands or Feet Total Score- 5 minute: 9 Shoulder Dystocia Delivery Times-Baby B Infant Delivery Date-Baby B: 06/05/21 Delivery Time- Baby B: 20:27
== END 2021-06-07 12:45 | disposition home or self-care (01) | DRG 807 ==
PROVIDERS: Admitting Provider Advanced Practice Midwife; Visit Provider Advanced Practice Midwife
DX: O36.5930 Maternal care for other known or suspected poor fetal growth, third trimester, not applicable or unspecified (principal); Z37.0 Single live birth; Z3A.38 38 weeks gestation of pregnancy; O99.344 Other mental disorders complicating childbirth; F32.9 Major depressive disorder, single episode, unspecified; O43.893 Other placental disorders, third trimester; O99.824 Streptococcus B carrier state complicating childbirth; O69.81X0 Labor and delivery complicated by cord around neck, without compression, not applicable or unspecified; O69.89X0 Labor and delivery complicated by other cord complications, not applicable or unspecified; Z20.822 Contact with and (suspected) exposure to COVID-19
CPT/HCPCS: 36415; 85027; 86850; 86900; 86901; 87635; 88307; J2540; J3490

== ENCOUNTER 2021-07-16 16:42 | Outpatient (REF) | payer MEDICAID, SELFPAY | END 2021-07-16 16:43 | disposition home or self-care (01) | LOC: LBN 16:42 | PROVIDERS: Referring Provider Advanced Practice Midwife; Visit Provider Advanced Practice Midwife | DX: Z39.2 Encounter for routine postpartum follow-up (principal) | CPT/HCPCS: 87480; 87510; 87660 ==

== ENCOUNTER 2022-05-11 16:28 | Emergency (ER) | payer MEDICAID, SELFPAY ==
[2022-05-11 16:32] VITALS: BP 110/64; PULSE 84; RESP 18; TEMP 36.8; O2SAT 97
--- NOTE | 2022-05-11 16:45 | DI.RAD_ITS ---
Exam(s) XR FOOT RT COMPLETE EXAM: XR FOOT RT COMPLETE CLINICAL HISTORY: Cellulitis, R/O Gas. TECHNIQUE: 2D digital imaging was performed. COMPARISON: No exams were available for comparison FINDINGS: 3 views No fracture or diastasis of the Lisfranc joint. Bone density normal. No osseous lesions. No radiog raphic evidence of osteomyelitis. No soft tissue gas. IMPRESSION: No significant findings. DATA REPOSITORY: RADIATION DOSE DELIVERED:
--- NOTE | 2022-05-11 16:45 | DI.RAD_ITS ---
Exam(s) XR TIB/FIB RT EXAM: XR TIB/FIB RT CLINICAL HISTORY: Cellulitis, R/O Gas. TECHNIQUE: 2D digital imaging was performed. COMPARISON: No exams were available for comparison FINDINGS: Two views No evidence of fracture. No radiopaque foreign body. Bone density normal. No osseous lesions No soft tissue gas IMPRESSION: No soft tissue gas evident, as per request. No significant osseous findings. No radiographic evidence of osteomyelitis. DATA REPOSITORY: RADIATION DOSE DELIVERED:
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
[2022-05-11 17:09] LABS: Abs Immature Grans 0.04 10^3/uL (0.0-0.06); Absolute Eosinophil Count 0.74 10^3/uL (0.0-0.7); Absolute Lymphocyte Count 3.19 10^3/uL (1.2-3.4); Absolute Monocyte Count 1.42 10^3/uL (0.1-0.8); Absolute Neutrophil Count 8.25 10^3/uL (1.2-6.7); Basophils % 0.4; Eosinophils % 5.4; HCT 40.1 % (36.0-46.0); HGB 13.3 g/dL (11.2-15.7); Immature Grans % 0.3; Lymphocytes % 23.3; MCHC 33.2 % (32.0-36.0); MCV 91 fL (80-95); MPV 10.9 fL (8.0-11.0); Monocytes % 10.4; Neutrophils % 60.2; Platelet Count 316 10^3/uL (130-400); RBC 4.43 10^6/uL (3.93-5.22); RDW 12.1 % (11.7-14.6); RDW-SD 40.6 fL
[2022-05-11 17:17] LABS: Absolute Basophil Count 0.05 10^3/uL (0.0-0.2)
[2022-05-11 17:22] LABS: Lactate 1.5 mmol/L (0.9-1.7)
[2022-05-11 17:28] LABS: ALT 26 U/L (14-59); AST 17 U/L (15-37); Albumin 3.5 g/dL (3.4-5.0); Alkaline Phosphatase 84 U/L (46-116); Anion Gap 7.1 mmol/L (3-11); BUN 12 mg/dL (7-18); Bilirubin, Total 0.2 mg/dL (0.2-1.0); CO2 28.9 mmol/L (21.0-32.0); CREATININE 0.7 mg/dL (0.55-1.02); Calcium 8.8 mg/dL (8.5-10.1); Chloride 103 mmol/L (98-107); Glucose 111 mg/dL (74-106); Potassium 3.5 mmol/L (3.5-5.1); Sodium 139 mmol/L (136-145); Total Protein 7.4 g/dL (6.4-8.2)
[2022-05-11] MEDS: fentaNYL 100 MCG/2 ML VIAL 25 MCG IVP (17:51)
[2022-05-11] MEDS: cefTRIAXone 1 GM/50 ML BAG IVPB (17:53)
--- NOTE | 2022-05-11 19:05 | DI.VRAD_ITS ---
PROCEDURE INFORMATION: Exam: XR Right Tibia and Fibula Exam date and time: 05/11/2022 6:32 PM Age: 27 years old Clinical indication: Cellulitis; Calf; Right TECHNIQUE: Imaging protocol: Radiologic exam of the Right tibia and fibula. Views: 2 views. COMPARISON: CR XR FOOT RT COMPLETE 05/11/2022 6:30 PM FINDINGS: Bones/joints: No evidence of fracture. Negative for dislocation. Negative for bony erosion or destructive change. Soft tissues: No soft tissue air. No foreign bodies. IMPRESSION: No acute osseous abnormality. If symptoms persist, follow-up imaging is advised. Dictated and Authenticated by: Joshua Oates MD. Ordering:POLO Guzman MD
--- NOTE | 2022-05-11 19:06 | DI.VRAD_ITS ---
PROCEDURE INFORMATION: Exam: XR Right Foot Exam date and time: 05/11/2022 6:30 PM Age: 27 years old Clinical indication: Cellulitis; Foot; Right TECHNIQUE: Imaging protocol: Radiologic exam of the Right foot. Views: 3 or more views. COMPARISON: No relevant prior studies available. FINDINGS: Bones/joints: No evidence of fracture. Negative for dislocation. Negative for bony erosion or destructive change. Soft tissues: No soft tissue air. No foreign bodies. Soft tissue swelling noted in the forefoot. IMPRESSION: No acute osseous abnormality. If symptoms persist, follow-up imaging is advised. Dictated and Authenticated by: Joshua Oates MD. Ordering:POLO Guzman MD
[2022-05-11] MEDS: Ketorolac 15 MG/ML VIAL IVP (19:13)
[2022-05-11 20:05] VITALS: BP 110/56; PULSE 82; RESP 18; TEMP 37.1; O2SAT 100
[2022-05-11] MEDS: Triamcinolone 0.1% CR 15 GM TUBE TP (20:12)
--- NOTE | 2022-05-12 14:35 | NUR.NOTE ---
Nursing Note: Patient called stating she only got 5 days 10 pills instead of the 10 days that she was supposed to get. That the pharmacy stated that was what the prescription said. Per Dr. Jerry I called the pharmacy and confirmed with them that the prescription really did say, 10 days, #20 pills. 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 Pharmacy is [facility].
== END 2022-05-11 20:38 | disposition home or self-care (01) ==
PROVIDERS: Emergency Provider Registered Nurse Emergency
DX: L03.115 Cellulitis of right lower limb (principal); L30.9 Dermatitis, unspecified; D72.829 Elevated white blood cell count, unspecified; Z32.02 Encounter for pregnancy test, result negative; F17.210 Nicotine dependence, cigarettes, uncomplicated; F17.290 Nicotine dependence, other tobacco product, uncomplicated
CPT/HCPCS: 36415; 80053; 81025; 96365; 96375; 99284; 73590; 73630; 83605; 85025; J0696; J1885; J3010

== ENCOUNTER 2024-09-17 13:05 | Emergency (ER) | payer MEDICAID, SELFPAY ==
[2024-09-17 13:09] VITALS: BP 133/94; PULSE 82; RESP 18; TEMP 37.2; O2SAT 100
[2024-09-17 13:43] LABS: Abs Immature Grans 0.05 10^3/uL (0.0-0.06); Absolute Basophil Count 0.07 10^3/uL (0.0-0.2); Absolute Eosinophil Count 0.36 10^3/uL (0.0-0.7); Absolute Lymphocyte Count 3.25 10^3/uL (1.2-3.4); Absolute Monocyte Count 1.25 10^3/uL (0.1-0.8); Absolute Neutrophil Count 9.54 10^3/uL (1.2-6.7); Basophils % 0.5 %; Eosinophils % 2.5 %; HCT 38.3 % (36.0-46.0); HGB 12.5 g/dL (11.2-15.7); Immature Grans % 0.3 %; Lymphocytes % 22.4 %; MCH 29.5 pg (27.0-33.0); MCHC 32.6 % (32.0-36.0); MCV 90 fL (80-95); MPV 9.9 fL (8.0-11.0); Monocytes % 8.6 %; Neutrophils % 65.7 %; Platelet Count 490 10^3/uL (130-400); RBC 4.24 10^6/uL (3.93-5.22); RDW 12.2 % (11.7-14.6); RDW-SD 40.3 fL; WBC 14.52 10^3/uL (4.4-10.8)
[2024-09-17 13:45] LABS: ESR 39 mm/hr (0-20)
[2024-09-17 13:58] LABS: ALT 19 U/L (14-59); AST 12 U/L (15-37); Albumin 2.9 g/dL (3.4-5.0); Alkaline Phosphatase 99 U/L (46-116); Anion Gap 7.5 mmol/L (3-11); BUN 11 mg/dL (7-18); Bilirubin, Total 0.44 mg/dL (0.2-1.0); C-Reactive Protein 2.53 mg/dL (<or=0.5); CO2 28.5 mmol/L (21.0-32.0); CREATININE 0.7 mg/dL (0.55-1.02); Calcium 8.6 mg/dL (8.5-10.1); Chloride 106 mmol/L (98-107); Estimated GFR 119.24 (mL/min/1.73m2); Glucose 95 mg/dL (74-106); Potassium 4.1 mmol/L (3.5-5.1); Sodium 142 mmol/L (136-145); Total Protein 7.5 g/dL (6.4-8.2)
[2024-09-17] MEDS: Doxycycline Hyclate 100 MG CAP PO (14:44)
[2024-09-17] MEDS: predniSONE 20 MG TAB 40 MG PO (14:44)
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
== END 2024-09-17 15:35 | disposition home or self-care (01) ==
LOC: ER 14:49
PROVIDERS: Emergency Provider Physician Assistant
DX: L30.8 Other specified dermatitis (principal); L03.116 Cellulitis of left lower limb; L03.115 Cellulitis of right lower limb; F17.210 Nicotine dependence, cigarettes, uncomplicated; F17.290 Nicotine dependence, other tobacco product, uncomplicated
CPT/HCPCS: 36415; 80053; 85652; 87077; 99283; 85025; 86140; 87070; 87186; 87205; J0665; J7512

== ENCOUNTER 2024-11-05 13:04 | Emergency (ER) | payer MEDICAID, SELFPAY ==
[2024-11-05 13:08] VITALS: BP 132/69; PULSE 77; RESP 16; TEMP 36.7; O2SAT 98
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
--- NOTE | 2024-11-07 10:09 | NUR.NOTE ---
Access chart to review workload messages. Nursing Note:
== END 2024-11-05 14:17 | disposition home or self-care (01) ==
PROVIDERS: Emergency Provider Nurse Practitioner Family
DX: L30.9 Dermatitis, unspecified (principal); L03.818 Cellulitis of other sites
CPT/HCPCS: 99283